=== PATIENT | female | born 2000 | race African-American/Black ===

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

== ENCOUNTER 2019-01-20 23:07 | Emergency (ER) | payer OTHER ==
[~2019-01-20] VITALS: Ht 160 cm; Wt 61.4 kg
[~2019-01-20 23:07] MED LIST changes: +OMEP-358 PO; -OMEP20TA PO; -OMEP40CA2 PO; +OMEP40CA97 PO
[2019-01-20 23:08] VITALS: BP 129/66
== END 2019-01-21 01:15 | disposition left against medical advice (07) ==
LOC: M ED 23:07
DX: Z53.29 Procedure and treatment not carried out because of patient's decision for other reasons (principal)

== ENCOUNTER → 2019-01-22 | Outpatient (REF) | payer OTHER ==
[~2019-01-22] MED LIST changes: -OMEP-358 PO; +OMEP20TA PO; +OMEP40CA2 PO; -OMEP40CA97 PO
[2019-01-22 19:40] LABS: ALBUMIN 3.6 GM/DL (3.2-5.2); ALT/SGPT 18 U/L (12-78); BILIRUBIN,TOTAL 0.2 MG/DL (0.2-1.0); BLOOD UREA NITROGEN 9 MG/DL (7-18); CARBON DIOXIDE LEVEL 27 MEQ/L (21-32); CHLORIDE LEVEL 109 MEQ/L (98-107); CREATININE FOR GFR 0.85 MG/DL (0.55-1.30); GLUCOSE, FASTING 90 MG/DL (70-100); POTASSIUM SERUM 4.3 MEQ/L (3.5-5.1); SODIUM LEVEL 141 MEQ/L (136-145); TOTAL PROTEIN 7.7 GM/DL (6.4-8.2)
== END ==
LOC: M LAB REF 17:10
PROVIDERS: ATTEND Family Medicine
DX: R73.03 Prediabetes (principal)

== ENCOUNTER 2019-01-27 23:49 | Emergency (ER) | payer OTHER ==
[~2019-01-27 23:49] MED LIST changes: -OMEP-358 PO; +OMEP20TA PO; +OMEP40CA2 PO; -OMEP40CA97 PO
[2019-01-28 00:06] VITALS: BP 121/64
[2019-01-28] MEDS ORDERED: ACETAMINOPHEN 500 MG TAB PO ONE (00:30)
--- NOTE | 2019-01-28 01:21 | REPVR ---
EXAM: CT Head Without Contrast EXAM DATE/TIME: 01/28/2019 12:30 AM CLINICAL HISTORY: 18 years old, female; Pain; Other: Tr TECHNIQUE: Imaging protocol: Computed tomography images of the head without contrast. Radiation optimization: All CT scans at this facility use at least one of these dose optimization techniques: automated exposure control; mA and/or kV adjustment per patient size (includes targeted exams where dose is matched to clinical indication); or iterative reconstruction. COMPARISON: CT Head without contrast 11/28/2018 1:38 AM FINDINGS: Brain: The white-hall differentiation is preserved demonstrating no acute territorial type infarct. No acute intracranial hemorrhage is seen. No intracranial mass effect. Artifact limits evaluation of the jennifer. Midline shift: There is no midline shift. Ventricles: No ventriculomegaly. Bones/joints: The calvarium demonstrates no evidence for a depressed fracture. Sinuses: Mild effusion again visualized within the right sphenoid sinus. Mastoid air cells: No mastoid effusion. Soft tissues: Unremarkable. IMPRESSION: 1. No acute intracranial abnormality. 2. Paranasal sinus disease is noted above. Electronically signed by: Kyle De Los Santos On 01/28/2019 01:20:59 AM
== END 2019-01-28 02:34 | disposition home or self-care (01) ==
LOC: M ED 23:49
DX: S00.83XA Contusion of other part of head, initial encounter (principal); Y04.8XXA Assault by other bodily force, initial encounter; Y92.89 Other specified places as the place of occurrence of the external cause; K21.9 Gastro-esophageal reflux disease without esophagitis; Z79.899 Other long term (current) drug therapy

== ENCOUNTER → 2019-01-27 | Outpatient (REF) | payer OTHER ==
[~2019-01-27] MED LIST changes: +OMEP-358 PO; -OMEP20TA PO; -OMEP40CA2 PO; +OMEP40CA97 PO
[2019-01-27 22:36] LABS: CHLAMYDIA DNA AMPLIFICATION NEGATIVE (NEGATIVE); GC DNA AMPLIFICATION NEGATIVE (NEGATIVE)
== END ==
LOC: M LAB REF 09:45
PROVIDERS: ATTEND Physician Assistant
DX: N30.01 Acute cystitis with hematuria (principal)

== ENCOUNTER → 2021-07-05 | Outpatient (REF) ==
[~2021-07-05] MED LIST changes: +OMEP-358 PO; -OMEP20TA PO; -OMEP40CA2 PO; +OMEP40CA4 PO
== END ==
LOC: M PLAIMG 13:00
PROVIDERS: ATTEND Internal Medicine
DX: M54.9 Dorsalgia, unspecified (principal); S39.92XA Unspecified injury of lower back, initial encounter; X58.XXXA Exposure to other specified factors, initial encounter; Y92.9 Unspecified place or not applicable; Y93.9 Activity, unspecified; Y99.9 Unspecified external cause status